=== PATIENT | male | born 1990 | race Caucasian/White ===

== ENCOUNTER 2023-02-15 16:36 | Emergency (ER) | payer OTHER ==
[~2023-02-15] VITALS: Ht 172.7 cm; Wt 72.6 kg
[2023-02-15 17:12] VITALS: BP 124/70; PULSE 86; RESP 18; TEMP 97; O2SAT 98
[2023-02-15 19:06] VITALS: BP 124/70; PULSE 86; RESP 18; TEMP 97; O2SAT 98
--- NOTE | 2023-02-15 19:06 | NUR ---
DISCHARGE DONE BY [facility]ONE. NO CONTACT WITH PT. Patient discharged with v/s stable. Written and verbal after care instructions given and explained. Patient verbalized understanding. Ambulatory with steady gait. All questions addressed prior to discharge. Advised to follow up with PMD.
== END 2023-02-15 19:06 | disposition home or self-care (01) ==
LOC: MED 16:36
DX: S20.212A Contusion of left front wall of thorax, initial encounter (principal); W21.89XA Striking against or struck by other sports equipment, initial encounter; Y93.89 Activity, other specified; Y92.89 Other specified places as the place of occurrence of the external cause; Y99.8 Other external cause status
CPT/HCPCS: 71045; 99283